=== PATIENT | female | born 1995 | race Caucasian/White ===

== ENCOUNTER 2017-08-25 01:13 | Outpatient (CLI) | payer OTHER | END 2017-08-25 04:21 | disposition home or self-care (01) | LOC: OBT 01:13 → L-D 01:18 → OBT 04:21 | DX: O62.9 Abnormality of forces of labor, unspecified (principal); Z3A.20 20 weeks gestation of pregnancy | CPT/HCPCS: 76817 ==

== ENCOUNTER 2017-08-25 04:37 | Emergency (ER) | payer OTHER | END 2017-08-25 05:45 | disposition home or self-care (01) | LOC: FTE 05:45 | DX: O99.511 Diseases of the respiratory system complicating pregnancy, first trimester (principal); B00.9 Herpesviral infection, unspecified; J06.9 Acute upper respiratory infection, unspecified; O98.511 Other viral diseases complicating pregnancy, first trimester; Z3A.12 12 weeks gestation of pregnancy | CPT/HCPCS: 99283; Z7502 ==